=== PATIENT | male | born 1975 | race Caucasian/White ===

== ENCOUNTER 2023-08-29 07:30 | Inpatient (IN) | payer OTHER ==
[~2023-08-29] VITALS: Ht 180.3 cm; Wt 89.8 kg
[2023-08-29] MEDS ORDERED: BUPIVACAINE MPF 0.5% W/EPI INJ 30 ML VIAL ONE (08:57)
[2023-08-29] MEDS ORDERED: LIDOCAINE 1%-EPI 1:100,000 20 ML VIAL ONE (08:58)
[2023-08-29] MEDS ORDERED: BUPIVACAINE 0.5 % PF 150 MG/30 ML VIAL ONE (08:59)
== END 2023-08-29 17:30 | disposition home or self-care (01) | DRG 607 ==
LOC: DS 07:30 → MED 07:32
PROVIDERS: ADMIT Surgery; ATTEND Surgery
PROC: 0HB6XZZ Excision of Back Skin, External Approach (ICD-10-PCS; principal; 2023-08-29)
DX: L72.0 Epidermal cyst (principal); Z79.899 Other long term (current) drug therapy
CPT/HCPCS: 88305-TC; 88312-TC; A4223; A6403; G0378; J2704; J3490